=== PATIENT | male | born 1965 | race Caucasian/White ===

== ENCOUNTER 2024-02-24 13:21 | Emergency (ER) | payer MEDICAID ==
[~2024-02-24] VITALS: Ht 162.6 cm; Wt 60.0 kg
[2024-02-24 13:50] VITALS: BP 126/88; PULSE 102; RESP 18; TEMP 97.8; O2SAT 98
[2024-02-24 14:02] LABS: BASOPHILS % 0.5 % (0.0-2.0); EOSINOPHILS % 1.3 % (0.0-5.0); HEMATOCRIT. 46.7 % (42.0-52.0); HEMOGLOBIN. 15.8 g/dL (14.0-18.0); LYMPHOCYTES % 16.3 % (20.0-50.0); MEAN CORPUSCULAR HEMOGLOBIN 30.2 pg (28.0-32.0); MEAN PLATELET VOLUME 7.6 fl (7.4-10.4); MONOCYTES % 9.2 % (2.0-8.0); NEUTROPHILS % 72.7 % (40.0-76.0); PLATELET 394 x1000/uL (130-400); RED BLOOD CELL COUNT 5.24 mill/uL (4.7-6.1); RED CELL DISTRIBUTION WIDTH 13.7 % (11.6-14.6); WHITE BLOOD COUNT 14.2 x1000/uL (4.5-11.0)
[2024-02-24 14:07] LABS: CHLORIDE 105 mEq/L (98-107); POTASSIUM 3.5 mEq/L (3.5-5.1); SODIUM 136 mEq/L (136-145)
[2024-02-24 14:08] LABS: CARBON DIOXIDE 24 mEq/L (21-32)
[2024-02-24 14:09] LABS: CALCIUM 9.5 mg/dL (8.7-10.4)
[2024-02-24 14:13] LABS: CREATININE 0.9 mg/dL (0.6-1.3); GLUCOSE 149 mg/dL (70-105); PROTHROMBIN TIME 11.5 sec (9.6-11.0)
[2024-02-24 14:14] LABS: UREA NITROGEN BLOOD 10 mg/dL (9-23)
[2024-02-24 14:15] LABS: ALANINE AMINOTRANSFERASE 20 IU/L (10-49); ALBUMIN 4.6 g/dL (3.2-4.8); ASPARTATE AMINOTRANSFERASE 19 IU/L (<34)
[2024-02-24 14:16] LABS: BILIRUBIN DIRECT 0.3 mg/dL (<=3.0); BILIRUBIN TOTAL 0.8 mg/dL (0.1-1.0); PROTEIN TOTAL 7.1 g/dL (6.0-8.3)
[2024-02-24 14:25] LABS: CLARITY URINE CLEAR (CLEAR); COLOR URINE ORANGE (YELLOW); GLUCOSE URINE NEGATIVE (NEGATIVE); KETONES URINE 1+ (NEGATIVE); LEUKOCYTE ESTERASE URINE NEGATIVE (NEGATIVE); NITRITE URINE NEGATIVE (NEGATIVE); OCCULT BLOOD URINE 1+ (NEGATIVE); PH URINE 5.5 (4.5-8.0); PROTEIN URINE TRACE (NEGATIVE); SPECIFIC GRAVITY URINE 1.025 (1.005-1.030)
[2024-02-24 14:39] LABS: COARSE GRANULAR CASTS URINE 0-5 /lpf; MUCUS URINE 3+ /lpf (NONE/TRACE); SQUAMOUS EPITHELIAL CELL URINE FEW /lpf (RARE/1+)
[2024-02-24 14:40] LABS: WBC URINE NONE SEEN /hpf (0-2)
[2024-02-24 14:41] LABS: BACTERIA URINE TRACE
[2024-02-24] MEDS ORDERED: AMOX1TAB16 MT (15:13)
[2024-02-24] MEDS ORDERED: IBUP-2030 MT (15:15)
[2024-02-24] MEDS: IBUPROFEN 800MG TABLET PO ONE (15:40)
[2024-02-24] MEDS: AMOXICILLIN/POTASSIUM CLAVULANATE 875/125MG TAB PO ONE (15:40)
== END 2024-02-24 16:17 | disposition home or self-care (01) ==
LOC: ER 13:24
DX: K57.92 Diverticulitis of intestine, part unspecified, without perforation or abscess without bleeding (principal)
CPT/HCPCS: 36415; 74176; 80048; 80076; 81003; 85025; 99284